=== PATIENT | male | born 1970 | race Caucasian/White ===

== ENCOUNTER 2021-09-01 14:52 | Emergency (ER) | payer MEDICAID ==
[~2021-09-01] VITALS: Ht 180.3 cm; Wt 127.3 kg
[2021-09-01 16:12] VITALS: BP 150/96
[2021-09-01] MEDS ORDERED: BENZ-38 PO (17:09)
== END 2021-09-01 17:20 | disposition home or self-care (01) ==
LOC: ER 14:53
DX: U07.1 COVID-19 (principal); F10.139 Alcohol abuse with withdrawal, unspecified; R44.1 Visual hallucinations; Y90.9 Presence of alcohol in blood, level not specified
CPT/HCPCS: 87635; 99283; C9803